=== PATIENT | female | born 1965 | race Caucasian/White ===

== ENCOUNTER 2018-06-09 16:06 | Emergency (ER) | payer OTHER ==
[~2018-06-09] VITALS: Ht 165.1 cm; Wt 68.0 kg
[2018-06-09 16:06] VITALS: BP 120/75
[~2018-06-09 16:06] MED LIST: ACET-787 PO; ALPR1TAB2 PO; BEN50 PO; CLON0.1T42 PO; DICL50EC11 PO; ELA10 PO; GABA300C PO; HYDR200T5 PO; LYR50 PO; MONT10TA35 PO; OMEP40EC14 PO; PARO40TA65 PO; PRED1TAB2 PO; SIMV40TA1 PO
--- NOTE | 2018-06-09 16:06 | NUR ---
PT BIBA TO BED 4
--- NOTE | 2018-06-09 16:23 | NUR ---
BIBA C/O FRONTAL REGION HEADACHE 10/10 WORSENING OVER 3 DAYS. DENIES INJURY, GCS 15, DENIES NVD/VISION CHANGES. PUPILS 3MM PERRLA. A/OX4. PATIENT POSITIONED FOR COMFORT; HOB ELEVATED; BEDRAILS UP X2; BED DOWN. ER MD MADE AWARE OF PT STATUS.
[2018-06-09] MEDS ORDERED: METOCLOPRAMIDE 10 MG TAB PO ONE (16:35)
[2018-06-09] MEDS ORDERED: ONDANSETRON 4 MG ODT PO ONE (16:35)
[2018-06-09] MEDS ORDERED: KETOROLAC 60 MG/2 ML VIAL IM ONE (16:35)
[2018-06-09] MEDS ORDERED: MORPHINE SULFATE 4 MG/ML SYR IM ONE (16:35)
--- NOTE | 2018-06-09 17:00 | NUR ---
PT TAKEN TO CT VIA W/C, ACCOMPANIED BY DIAGNOSTIC MEDICAL SONOGRAPHER.
--- NOTE | 2018-06-09 19:09 | NUR ---
Pt report given to VIVIANE PRIEST. Transfer of care at this time.
--- NOTE | 2018-06-09 19:10 | NUR ---
BEDSIDE REPORT RECEIVED FROM ZAYDA MURPHY. TRANSFER OF CARE AT THIS TIME.
--- NOTE | 2018-06-09 19:44 | NUR ---
Patient discharged with v/s stable. Written and verbal after care instructions given and explained. Patient alert, oriented and verbalized understanding of instructions. Ambulatory with steady gait. All questions addressed prior to discharge. ID band removed. Patient advised to follow up with PMD. Rx of Clindamycin, Bactrim, and Fioircet given. Patient educated on indication of medication including possible reaction and side effects. Opportunity to ask questions provided and answered.
== END 2018-06-09 19:44 | disposition home or self-care (01) ==
LOC: MED 16:06
DX: R51 Headache (principal); J44.9 Chronic obstructive pulmonary disease, unspecified; K21.9 Gastro-esophageal reflux disease without esophagitis; I10 Essential (primary) hypertension; Z85.41 Personal history of malignant neoplasm of cervix uteri; Z79.899 Other long term (current) drug therapy; Z88.1 Allergy status to other antibiotic agents; Z88.5 Allergy status to narcotic agent
CPT/HCPCS: 70450; 96372; 99284; J1885; J2270; J8597; Q0162

== ENCOUNTER 2022-09-20 12:38 | Emergency (ER) | payer OTHER ==
[~2022-09-20] VITALS: Ht 152.4 cm; Wt 59.0 kg
[~2022-09-20 12:38] MED LIST changes: -ACET-787 PO; +AMIT10TA36 PO; +CLON0.1T16 PO; -CLON0.1T42 PO; -ELA10 PO; +HYDR-5191 PO; -HYDR200T5 PO; +HYDR200T65 PO; +MONT-72 PO; -MONT10TA35 PO; -OMEP40EC14 PO; +OMEP40EC23 PO; +SIMV-373 PO; -SIMV40TA1 PO
--- NOTE | 2022-09-20 12:39 | NUR ---
PT TO ROOM 2. PT BROUGHT IN BY [facility].
--- NOTE | 2022-09-20 12:42 | NUR ---
SEIZURE PRECAUTIONS TO BE IMPLEMENTED.
[2022-09-20 12:48] VITALS: BP 100/61; PULSE 80; RESP 12; TEMP 97.4; O2SAT 97
--- NOTE | 2022-09-20 12:55 | NUR ---
57 Y/O FEMALE BIBA FROM HOME, PT HAD 5 MINUTE WITNESSED SEIZURE BY FAMILY. ME AND ARM ON SCENE WITNESSED 1 MIN SEIZURE, MEDS NOT GIVEN. PT WAS A GCS 14 EN ROUTE, NOW GCS 15. STATES SHE TAKES KEPPRA AND TOPIRAMATE. PT STATES 10/10 BODY PAIN AT THIS TIME. HR EVEN AND REGULAR; PT DENIES ANY FEVER, CP, SOB, OR COUGH AT THIS TIME; PATIENT STATES PAIN OF 10/10 AT THIS TIME; VSS; PATIENT POSITIONED FOR COMFORT; HOB ELEVATED; BEDRAILS UP X2; BED DOWN. ER MD MADE AWARE OF PT STATUS. CALL LIGHT WITHIN REACH. PMH: LUNG CA, SEIZURE ALLERGY: CODEINE, AMOXICILLIN
--- NOTE | 2022-09-20 13:36 | NUR ---
MD ESTRADA AT EVALUATING PT. PT INFORMED THE DOCTOR THAT SHE HAS A HX OF RLE WEAKNESS. WEAKNESS IS NORMAL FOR SELF. PT DENIES ANY PAIN. PT STATED, SHE OFTEN GETS SEIZURES AND SHE HAS A RECENT DX OF LUNG CA. PT STATED, SHE HAS NOT STARTED CHEMO/SURGERY DUE TO ABNORMAL STRESS TEST.
--- NOTE | 2022-09-20 13:44 | NUR ---
INFORMED HER THAT HE WOULD GIVE HER ATIVAN AND HER SEIZURE MEDICATION.
[2022-09-20] MEDS ORDERED: LORazepam 2 MG/ML VIAL IVP ONE (13:45)
[2022-09-20] MEDS ORDERED: levETIRAcetam 1,000 MG in NACL 0.9% 100 ML IV ONE (13:45)
[2022-09-20] MEDS ORDERED: TOPIRAMATE 100 MG TAB PO ONE (13:45)
--- NOTE | 2022-09-20 14:31 | NUR ---
Pharmacy to bring seizure meds to ER. Currently not stocked in [email or web address].
[2022-09-20 16:46] VITALS: TEMP 97.8
--- NOTE | 2022-09-20 16:53 | NUR ---
PT PENDING DC HOME. CHARGE NURSE CALLING PT'S [id number] FOR TRANSPORT HOME.
[2022-09-20 17:18] VITALS: BP 103/64; PULSE 74; RESP 17; O2SAT 98
--- NOTE | 2022-09-20 17:18 | NUR ---
Patient discharged with v/s stable. Written and verbal after care instructions given and explained. Patient verbalized understanding. Ambulatory with steady gait. All questions addressed prior to discharge. Advised to follow up with PMD.
== END 2022-09-20 17:18 | disposition home or self-care (01) ==
LOC: MED 12:38
DX: R56.9 Unspecified convulsions (principal); J44.9 Chronic obstructive pulmonary disease, unspecified; J45.909 Unspecified asthma, uncomplicated; K21.9 Gastro-esophageal reflux disease without esophagitis; F17.210 Nicotine dependence, cigarettes, uncomplicated; Z79.899 Other long term (current) drug therapy
CPT/HCPCS: 96365; 96375; 99285; J1953; J2060